=== PATIENT | male | born 1945 | race Caucasian/White ===

== ENCOUNTER 2019-02-06 20:33 | Inpatient (IN) | payer MEDICARE, OTHER ==
[~2019-02-06] VITALS: Ht 180.3 cm; Wt 102.4 kg
[2019-02-06 21:44] LABS: BASOPHILS % (AUTO) 0.2 % (0-1); EOSINOPHILS % (AUTO) 0 % (0-6); HEMATOCRIT 41.3 % (42.0-52.0); HEMOGLOBIN 13.6 g/dl (14.0-17.9); LYMPHOCYTES # (AUTO) 0.7 X10'3 (1.1-4.8); LYMPHOCYTES % (AUTO) 3.6 % (21-51); MEAN CORPUSCULAR HEMOGLOBIN 29.8 PG (27.0-31.0); MEAN CORPUSCULAR HGB CONC 32.9 g/dL (33.0-36.5); MEAN CORPUSCULAR VOLUME 90.8 FL (78-98); MEAN PLATELET VOLUME 8.9 FL (7.4-10.4); MONOCYTES # (AUTO) 1.2 X10'3 (0-0.9); NEUTROPHILS # (AUTO) 17.7 X10'3 (1.8-7.7); NEUTROPHILS % (AUTO) 90.2 % (42-75); PLATELET COUNT 312 X10'3 (140-440); RED BLOOD COUNT 4.55 X10'6 (4.70-6.10); RED CELL DISTRIBUTION WIDTH 14.6 % (11.5-14.5); WHITE BLOOD COUNT 19.6 X10'3 (4.5-11.0)
[2019-02-06 21:49] LABS: ALANINE AMINOTRANSFERASE 49 U/L (12-78); ALBUMIN 3.1 G/DL (3.4-5.0); ALBUMIN/GLOBULIN RATIO 0.6 (1.1-1.5); ALKALINE PHOSPHATASE 47 IU/L (46-116); ANION GAP 16 (8-16); ASPARTATE AMINO TRANSFERASE 58 U/L (10-37); BILIRUBIN,TOTAL 0.8 MG/DL (0.1-1.0); BLOOD UREA NITROGEN 64 MG/DL (7-18); BUN/CREATININE RATIO 15.6 (5.4-32.0); CALCIUM 8.1 MG/DL (8.5-10.1); CHLORIDE 94 MMOL/L (99-107); GLUCOSE 156 MG/DL (70-104); POTASSIUM 4.4 MMOL/L (3.5-5.1); SODIUM 131 MMOL/L (135-145); TOTAL CARBON DIOXIDE 21.2 MMOL/L (24-32); TOTAL PROTEIN 7.9 G/DL (6.4-8.2); eGFR 14 ML/MIN
[2019-02-06] MEDS ORDERED: ondansetron/PF 4mg/2ml inj IV ONE (21:50)
[2019-02-06] MEDS ORDERED: morphine 4 MG/ML inj SYRINge IV ONE (21:50)
[2019-02-06] MEDS ORDERED: normal saline 1000ML IV soln IVB ONE (21:50)
[2019-02-06] MEDS ORDERED: normal saline 1000ML IV soln IV ONE (23:35)
[2019-02-06] MEDS ORDERED: CefTRIAXone 2gm/D5W 50ml 50 ML IV ONE (23:40)
[2019-02-06] MEDS ORDERED: levoFLOXACIN-Levaquin 750MG/D5 150 ML IV ONE (23:40)
[2019-02-06 23:56] LABS: ABG BASE EXCESS -5.9 mmol/L (-2.0-3.0); ABG HCO3 18.3 mmol/L (22.0-26.0); ABG OXYGEN SATURATION 93.3 % (95-98); ABG PCO2 (T) 31.6 mmHg (35.0-45.0); ABG PH (T) 7.378 (7.350-7.450); ABG PO2 (T) 72.2 mmHg (83-108); ALLEN'S TEST Positive; FCOHb 1.1 % (0.5-1.5); FLOW 6 L/min; FMetHb 0.3 % (0.3-1.12); PATIENT TEMPERATURE 36.7; TOTAL HEMOGLOBIN 12.6 G/dl (14.0-17.9)
[2019-02-07] VITALS (21 sets, daily range): BP systolic 86–127; BP diastolic 46–82
[2019-02-07] MEDS ORDERED: ZOLP10TA PO (00:21)
[2019-02-07] MEDS ORDERED: LEVO75TA56 PO (00:21)
[2019-02-07] MEDS ORDERED: WARF3TAB PO (00:21)
[2019-02-07] MEDS ORDERED: BUDE10.22 INH (00:21)
[2019-02-07] MEDS ORDERED: FLEC100T2 PO (00:21)
[2019-02-07] MEDS ORDERED: ALBU90AE (00:21)
[2019-02-07] MEDS ORDERED: WARF6TAB PO (00:21)
[2019-02-07] MEDS ORDERED: HYDR-4353 PO (00:21)
[2019-02-07] MEDS ORDERED: [UNRECOGNIZED DRUG - CODE] PO (00:21)
[2019-02-07] MEDS ORDERED: GABA600T13 PO (00:21)
[2019-02-07 00:33] LABS: D-DIMER 1.15 MG/L FEU (0-0.50)
[2019-02-07] MEDS ORDERED: NORMAL SALINE IV ONE (01:15)
[2019-02-07] MEDS ORDERED: ondansetron/PF 4mg/2ml inj IV PRN (01:15)
[2019-02-07] MEDS ORDERED: PHYTONADIONE IV ONE (01:15)
[2019-02-07] MEDS ORDERED: acetaminophen 325mg tablet PO PRN ×2 (01:15)
[2019-02-07] MEDS ORDERED: sodium bicarbonate (8.4%) inj. 50 MEQ in sodium chloride 0.45% 1,000 ML IV SCH (01:35)
[2019-02-07 06:00] LABS: CLARITY,URINE CLOUDY (Clear); COLOR,URINE YELLOW (Yellow); GLUCOSE, URINE NEGATIVE (Neg); KETONES,URINE NEGATIVE (Neg); LEUKOCYTE ESTERASE ,URINE NEGATIVE (Neg); NITRITES, URINE NEGATIVE (Neg); OCCULT BLOOD,URINE SMALL (Neg); PH,URINE 5.5 (4.8-8.0); PROTEIN,URINE 100 mg/dl (Neg)
[2019-02-07 06:03] LABS: TOTAL PROTEIN,URINE RANDOM 189.8 MG/DL
--- NOTE | 2019-02-07 06:04 | NUR ---
RECEIVED PATIENT FROM ED NEAR 0230 AM. PATIENT ARRIVED ALERT AND ORIENTED WITHOUT COMPLAINTS OF RESPIRATORY DISTRESS OR C/O PAIN. PATIENT STATES THAT THE PAIN WHILE IN BED IS 0/10. HOWEVER WHEN HE IS WALKING - IT IS A 8/10 IN THE JOINT OF THE LEFT HIP. HE IS UNAWARE OF THE ETIOLOGY AND HAS NOT EXPERIENCE THIS PAIN BEFORE. B/L LUNGS ARE CLEAR BUT DIMINISHED B/L BASES. 6 L NC FOR SATS 96-97 %. RT JOCELYN IN AND SUGGEST NOT TURNING DOWN O2 DUE TO THE EARLIER ABG RESULTS % SAT COMPARED TO SAO2 SAT - THEY DID NOT CORRELATE. THE SAO2 % WAS READING HIGHER THAN WHAT THE ABG REVEALED. PATIENT IS NPO FOR THE VQ SCAN PROCEDURE IN THE AM. HOWEVER FOR PATIENT COMFORT I DID ALLOW PATIENT AN FEW ICE CHIPS BECAUSE HIS THROAT WAS TOO DRY. PATIENT DOES NOT FEEL THE NEED TO URINATE AT THIS TIME. PATIENT PER REPORT - RECEIVED 3.5 L NS IN ED. I MADE JUNE, PHARMACY INFORMATICS SPECIALIST AWARE AND WAS GIVEN AN ORDER TO STRAIGHT CATH IF THE BLADDER SCANNER SHOWED MORE THAN 400 CC URINE. bLADDER SCAN DONE NEAR 5 AM AND SHOWED 619 CC URINE. STRAIGHT CATH FOR 600 ML DARK SOY URINE. SAMPLE TO LAB FOR UA PER ORDER. PIV X2 # 20 LEFT AC & FA. PATIENT , CDI. VITAMIN MINI GIVEN IV PER ORDER. WENT HOME AFTER UNIT ORIENTATION AND CALL INFO EXCHANGE. TOOK ALL VALUABLES EXCEPT CELL PHONE AND GLASSES WHICH ARE AT BEDSIDE. SKIN INTACT. BG ON ARRIVAL TO UNIT WAS 105. ALL PROCEDURES EXPLAINED
[2019-02-07 06:08] LABS: UA COLLECTION TYPE STRAIGHT CATH
[2019-02-07 06:17] LABS: BASOPHILS % (AUTO) 0.2 % (0-1); EOSINOPHILS % (AUTO) 0 % (0-6); HEMATOCRIT 39.3 % (42.0-52.0); HEMOGLOBIN 12.9 g/dl (14.0-17.9); LYMPHOCYTES # (AUTO) 0.7 X10'3 (1.1-4.8); LYMPHOCYTES % (AUTO) 4.7 % (21-51); MEAN CORPUSCULAR HEMOGLOBIN 29.8 PG (27.0-31.0); MEAN CORPUSCULAR HGB CONC 32.7 g/dL (33.0-36.5); MEAN CORPUSCULAR VOLUME 91.1 FL (78-98); MEAN PLATELET VOLUME 8.8 FL (7.4-10.4); MONOCYTES % (AUTO) 6.5 % (2-12); NEUTROPHILS % (AUTO) 88.6 % (42-75); PLATELET COUNT 213 X10'3 (140-440); RED BLOOD COUNT 4.31 X10'6 (4.70-6.10); RED CELL DISTRIBUTION WIDTH 14.5 % (11.5-14.5); WHITE BLOOD COUNT 15.9 X10'3 (4.5-11.0)
[2019-02-07 06:27] LABS: BACTERIA,URINE FEW /HPF (Neg); WBC,URINE 0-4 /HPF (0-4)
[2019-02-07 06:28] LABS: HYALINE CASTS 0-3 /LPF (NEGATIVE); MUCUS STRANDS FEW /LPF (Neg); SQUAMOUS EPITHELIAL CELL,UR NONE SEEN /LPF (FEW)
[2019-02-07 06:30] LABS: RBC,URINE 0-2 /HPF (0-2)
[2019-02-07 06:31] LABS: AMORPHOUS URATES 3+
[2019-02-07 06:32] LABS: TRANSITIONAL EPI CELLS,URINE FEW /HPF
[2019-02-07 06:56] LABS: ALANINE AMINOTRANSFERASE 44 U/L (12-78); ALBUMIN 2.7 G/DL (3.4-5.0); ALBUMIN/GLOBULIN RATIO 0.6 (1.1-1.5); ALKALINE PHOSPHATASE 42 IU/L (46-116); ANION GAP 13 (8-16); ASPARTATE AMINO TRANSFERASE 54 U/L (10-37); BILIRUBIN,TOTAL 0.4 MG/DL (0.1-1.0); BLOOD UREA NITROGEN 63 MG/DL (7-18); BUN/CREATININE RATIO 16.8 (5.4-32.0); CALCIUM 7.4 MG/DL (8.5-10.1); CHLORIDE 100 MMOL/L (99-107); CHOLESTEROL 91 MG/DL (0-200); CREATININE 3.75 MG/DL (0.60-1.10); GLUCOSE 103 MG/DL (70-104); HDL CHOLESTEROL 13 MG/DL (35-60); LDL CHOLESTEROL 50 MG/DL (50-100); MAGNESIUM 2.2 MG/DL (1.5-2.4); PHOSPHORUS 4.6 MG/DL (2.3-4.5); POTASSIUM 4.6 MMOL/L (3.5-5.1); SODIUM 133 MMOL/L (135-145); TOTAL CARBON DIOXIDE 19.6 MMOL/L (24-32); TOTAL PROTEIN 7.2 G/DL (6.4-8.2); TRIGLYCERIDES 135 MG/DL (20-135); TROPONIN I 0.35 NG/ML (0.0-0.05); eGFR 16 ML/MIN
[2019-02-07] MEDS: ipratropium/albuterol 3ml nebule NEB PRN ×2 (08:15→20:13)
[2019-02-07] MEDS: budesonide 0.5mg/2ml UD nebule IH SCH ×2 (08:15→20:13)
[2019-02-07] MEDS: docusate sod 100mg capsule PO SCH ×2 (08:51→20:55)
[2019-02-07] MEDS: pantoprazole 40mg Tablet.DR PO SCH (08:51)
[2019-02-07] MEDS: gabapentin 300mg capsule PO SCH ×3 (08:51→20:56)
[2019-02-07] MEDS: flecainide 50mg tablet PO SCH ×2 (08:51→20:55)
[2019-02-07] MEDS: levoTHYROXINE 75mcg tablet PO SCH (08:52)
[2019-02-07] MEDS: sodium bicarbonate (8.4%) inj. 50 MEQ in sodium chloride 0.45% 1,000 ML IV SCH ×2 (10:55→20:55)
[2019-02-07] MEDS ORDERED: azithromycin 250mg tablet PO ONE (11:50)
[2019-02-07] MEDS: lactobacillus rhamnosus 10,000 MMU CELLS/CAPSULE PO SCH (20:55)
[2019-02-07] MEDS: tamsulosin 0.4mg capsule PO SCH (20:55)
[2019-02-07] MEDS ORDERED: gabapentin 300mg capsule PO SCH (21:00)
[2019-02-07] MEDS: CefTRIAXone 2gm/D5W 50ml 50 ML IV SCH (23:21)
[2019-02-08] VITALS (17 sets, daily range): BP systolic 85–111; BP diastolic 36–68
[2019-02-08] MEDS: HYDROcodone/acetaminophen 10/325mg tab PO PRN ×4 (03:13→23:14)
[2019-02-08] MEDS: sodium bicarbonate (8.4%) inj. 50 MEQ in sodium chloride 0.45% 1,000 ML IV SCH ×3 (03:47→18:09)
[2019-02-08 04:45] LABS: BASOPHILS % (AUTO) 0.2 % (0-1); EOSINOPHILS # (AUTO) 0.1 X10'3 (0-0.9); EOSINOPHILS % (AUTO) 0.6 % (0-6); HEMATOCRIT 38.5 % (42.0-52.0); HEMOGLOBIN 12.8 g/dl (14.0-17.9); LYMPHOCYTES # (AUTO) 0.7 X10'3 (1.1-4.8); LYMPHOCYTES % (AUTO) 6.4 % (21-51); MEAN CORPUSCULAR HGB CONC 33.2 g/dL (33.0-36.5); MEAN CORPUSCULAR VOLUME 90.3 FL (78-98); MEAN PLATELET VOLUME 8.9 FL (7.4-10.4); MONOCYTES # (AUTO) 0.7 X10'3 (0-0.9); MONOCYTES % (AUTO) 6.1 % (2-12); NEUTROPHILS # (AUTO) 9.2 X10'3 (1.8-7.7); NEUTROPHILS % (AUTO) 86.7 % (42-75); PLATELET COUNT 206 X10'3 (140-440); RED BLOOD COUNT 4.27 X10'6 (4.70-6.10); RED CELL DISTRIBUTION WIDTH 14.6 % (11.5-14.5); WHITE BLOOD COUNT 10.6 X10'3 (4.5-11.0)
[2019-02-08 04:59] LABS: ALANINE AMINOTRANSFERASE 43 U/L (12-78); ALBUMIN 2.2 G/DL (3.4-5.0); ALBUMIN/GLOBULIN RATIO 0.5 (1.1-1.5); ALKALINE PHOSPHATASE 48 IU/L (46-116); ANION GAP 11 (8-16); ASPARTATE AMINO TRANSFERASE 41 U/L (10-37); BILIRUBIN,TOTAL 0.5 MG/DL (0.1-1.0); BLOOD UREA NITROGEN 50 MG/DL (7-18); BUN/CREATININE RATIO 20.3 (5.4-32.0); CHLORIDE 102 MMOL/L (99-107); CREATININE 2.46 MG/DL (0.60-1.10); GLUCOSE 105 MG/DL (70-104); MAGNESIUM 2.1 MG/DL (1.5-2.4); PHOSPHORUS 3.5 MG/DL (2.3-4.5); POTASSIUM 4.3 MMOL/L (3.5-5.1); SODIUM 134 MMOL/L (135-145); TOTAL CARBON DIOXIDE 21.2 MMOL/L (24-32); TOTAL PROTEIN 6.4 G/DL (6.4-8.2); eGFR 26 ML/MIN
--- NOTE | 2019-02-08 05:12 | NUR ---
PATIENT DID FAIRLY WELL THIS SHIFT. NEUROLOGICALLY REMAINS INTACT. MARKED DECREASE IN O2 SATURATION WHEN O2 WAS PULLED AWAY FROM PATIENT NOSTRILS OR WHEN HE REMOVED IT TO WASH FACE - SATS DROP QUICKLY. NO C/O SOB AND RESPIRATORY DISTRESS. LUNGS ARE CLEAR AND DIMINISHED. NO COUGHING - UNABLE TO OBTAIN A SPUTUM SAMPLE. THE CONTAINER IS AT BEDSIDE AND PATIENT IS AWARE THAT WE NEED A SAMPLE SHOULD HE COUGH ANYTHING UP. PATIENT REVERTED TO AFIB STARTING NEAR MIDNIGHT. HE WAS IN AND OUT BUT REMAINED IN AFIB AFTER TO 2 AM. PER PATIENT - HE USUALLY CAN TELL WHEN HE GOES INTO A FIB BUT DID NOT AND STILL DOES NOT NOTICE ANYTHING DIFFERENT IN TERMS OF "FEELING IT". BP SINCE THEN OCCASIONALLY IS MARGINAL BUT PATIENT IS NOT DIZZY AND NO CP. NO NAUSEA THIS SHIFT. USES URINAL X1 FOR 650 ML SOY CLEAR URINE. BICARB INFUSES PER ORDER. SKIN IS INTACT. PATIENT WAS OOB X2, HAS A LARGE BM USING COMMODE WITH SMALL AMOUNT URINE WELL. WOKE UP LATER WITH FOOT PAIN - NOT UNUSUAL PER PATIENT. HE RECEIVED A NORCO WITH GOOD RESULTS. PATIENT BATHED HIMSELF/BR IN CHAIR NEAR 4 AM. NEW BED LINES Addendum: 02/08/19 at 0529 by Neville Tiwari RN PREVIOUS NOTE CLOSED UNEXPECTEDLY. NEW BED LINENS AND PATIENT WENT BACK TO BED AND SLEPT COMFORTABLY. ALL PROCEDURES EXPLAINED. AM LABS ARE PENDING AT THIS TIME. Addendum: 02/08/19 at 0534 by Neville Tiwari RN CLARIFICATION. 300 ML URINE WITH THE STOOL EPISODE AND PATIENT ALSO VOIDED A SEPARATE TIME IN URINAL WITH A DIFFERENT RN TO ADD TO Rapp IT Up. 1300 ML URINE THIS SHIFT
[2019-02-08 05:21] LABS: PARTIAL THROMBOPLASTIN TIME 62 SECONDS (22-32)
[2019-02-08] MEDS: naproxen sodium 220mg tablet PO SCH ×2 (07:39→20:00)
[2019-02-08] MEDS: lactobacillus rhamnosus 10,000 MMU CELLS/CAPSULE PO SCH ×2 (07:40→20:10)
[2019-02-08] MEDS: azithromycin 250mg tablet PO SCH (07:41)
[2019-02-08] MEDS: flecainide 50mg tablet PO SCH ×2 (07:41→20:11)
[2019-02-08] MEDS: pantoprazole 40mg Tablet.DR PO SCH (07:41)
[2019-02-08] MEDS: levoTHYROXINE 75mcg tablet PO SCH (07:41)
[2019-02-08] MEDS: tamsulosin 0.4mg capsule PO SCH ×2 (07:41→20:11)
[2019-02-08] MEDS: docusate sod 100mg capsule PO SCH ×2 (07:43→20:10)
[2019-02-08] MEDS: ipratropium/albuterol 3ml nebule NEB PRN (08:51)
[2019-02-08] MEDS: budesonide 0.5mg/2ml UD nebule IH SCH ×2 (08:51→20:24)
--- NOTE | 2019-02-08 09:17 | NUR ---
Pt. has orders to transfer to PCU with tele per Dr. Alvares. Pt. desats quickly if 02 is not on. Currently on 6L 02 via MT. Pt. to have nuc med bone scan today for c/o left hip pain on admission. Awaiting bed assignment on PCU. Charge nurse aware.
--- NOTE | 2019-02-08 12:21 | NUR ---
Pt. to go to bone scan in nuc. med at 1300 then to [facility] 3023A. Tele #[phone] obtained for pt. at bedside. RN attempted to call report but was told report would be taken after 1300 once pt. is in nuc. med.
--- NOTE | 2019-02-08 13:13 | NUR ---
Received report from ICU nurse Maria Victoria, RN Pt is at [facility] and will come to PCU when done
--- NOTE | 2019-02-08 13:16 | NUR ---
Report called to Otoniel GAN. Pt. in nuc med. Belonging brought to pt.'s new room on PCU. Antonia took pt's phone and security flex officer. Pt. wearing his glasses. Chart with pt. in Muc. Med. Pt. left to nec. med in stable condition with tele #[id number] on.
--- NOTE | 2019-02-08 13:46 | NUR ---
Pt arrived to 3
--- NOTE | 2019-02-08 13:48 | NUR ---
Pt arrived to room 3023a @ 1335 via wheelchair by [employer]. He is a&ox4, NAD
--- NOTE | 2019-02-08 16:51 | NUR ---
c/o pain in BLE chronic, ache. L hip pain has subsided Addendum: 02/08/19 at 1651 by Imelda Cottrell RN Amended: Links added.
--- NOTE | 2019-02-08 18:15 | NUR ---
Problems reprioritized. Patient report given, questions answered & plan of care reviewed with MALIK Flowers .
--- NOTE | 2019-02-08 18:52 | NUR ---
Patient in room PCU 3023. I have received report from Otoniel GAN and had the opportunity to ask questions and assume patient care.
[2019-02-08] MEDS: gabapentin 300mg capsule PO SCH (20:11)
[2019-02-08] MEDS: CefTRIAXone 2gm/D5W 50ml 50 ML IV SCH (23:14)
[2019-02-09] MEDS: zolpidem 5mg tablet PO PRN (01:08)
[2019-02-09] MEDS ORDERED: lactulose 20gm/30ml cup PO PRN (01:15)
[2019-02-09 02:00] VITALS: BP 102/62
[2019-02-09] MEDS: sodium bicarbonate (8.4%) inj. 50 MEQ in sodium chloride 0.45% 1,000 ML IV SCH (03:27)
[2019-02-09 05:22] LABS: BASOPHILS % (AUTO) 0.6 % (0-1); EOSINOPHILS # (AUTO) 0.3 X10'3 (0-0.9); EOSINOPHILS % (AUTO) 3.5 % (0-6); HEMATOCRIT 36.8 % (42.0-52.0); HEMOGLOBIN 12.4 g/dl (14.0-17.9); LYMPHOCYTES # (AUTO) 0.9 X10'3 (1.1-4.8); LYMPHOCYTES % (AUTO) 11.9 % (21-51); MEAN CORPUSCULAR HEMOGLOBIN 30.4 PG (27.0-31.0); MEAN CORPUSCULAR HGB CONC 33.7 g/dL (33.0-36.5); MEAN CORPUSCULAR VOLUME 90.2 FL (78-98); MEAN PLATELET VOLUME 9.1 FL (7.4-10.4); MONOCYTES # (AUTO) 0.5 X10'3 (0-0.9); MONOCYTES % (AUTO) 6.8 % (2-12); NEUTROPHILS # (AUTO) 5.8 X10'3 (1.8-7.7); NEUTROPHILS % (AUTO) 77.2 % (42-75); PLATELET COUNT 219 X10'3 (140-440); RED BLOOD COUNT 4.08 X10'6 (4.70-6.10); RED CELL DISTRIBUTION WIDTH 14.6 % (11.5-14.5); WHITE BLOOD COUNT 7.5 X10'3 (4.5-11.0)
[2019-02-09 05:31] LABS: PARTIAL THROMBOPLASTIN TIME 67 SECONDS (22-32)
[2019-02-09 05:39] LABS: ALANINE AMINOTRANSFERASE 46 U/L (12-78); ALBUMIN/GLOBULIN RATIO 0.5 (1.1-1.5); ALKALINE PHOSPHATASE 45 IU/L (46-116); ANION GAP 8 (8-16); ASPARTATE AMINO TRANSFERASE 47 U/L (10-37); BILIRUBIN,TOTAL 0.4 MG/DL (0.1-1.0); BLOOD UREA NITROGEN 50 MG/DL (7-18); BUN/CREATININE RATIO 23.6 (5.4-32.0); CALCIUM 7.1 MG/DL (8.5-10.1); CHLORIDE 102 MMOL/L (99-107); CREATININE 2.12 MG/DL (0.60-1.10); GLUCOSE 98 MG/DL (70-104); MAGNESIUM 2.3 MG/DL (1.5-2.4); PHOSPHORUS 3.3 MG/DL (2.3-4.5); POTASSIUM 3.7 MMOL/L (3.5-5.1); SODIUM 136 MMOL/L (135-145); TOTAL CARBON DIOXIDE 25.7 MMOL/L (24-32); TOTAL PROTEIN 5.8 G/DL (6.4-8.2); eGFR 31 ML/MIN
[2019-02-09 06:00] VITALS: BP 99/64
--- NOTE | 2019-02-09 06:05 | NUR ---
Patient in room PCU 3023. I have received report from MALIK Flowers and had the opportunity to ask questions and assume patient care.
--- NOTE | 2019-02-09 06:10 | NUR ---
Patient in room PCU 3023. I have received report from MALIK Holman and had the opportunity to ask questions and assume patient care.
--- NOTE | 2019-02-09 06:13 | NUR ---
Problems reprioritized. Patient report given, questions answered & plan of care reviewed with Angie GAN.
[2019-02-09] MEDS ORDERED: levoFLOXACIN-Levaquin 250mg/D5 50 ML IV SCH (08:00)
[2019-02-09] MEDS: naproxen sodium 220mg tablet PO SCH ×2 (08:00→20:00)
[2019-02-09] MEDS: pantoprazole 40mg Tablet.DR PO SCH (08:03)
[2019-02-09] MEDS: lactobacillus rhamnosus 10,000 MMU CELLS/CAPSULE PO SCH ×2 (08:03→20:11)
[2019-02-09] MEDS: azithromycin 250mg tablet PO SCH (08:04)
[2019-02-09] MEDS: flecainide 50mg tablet PO SCH ×2 (08:04→20:11)
[2019-02-09] MEDS: docusate sod 100mg capsule PO SCH ×2 (08:04→20:00)
[2019-02-09] MEDS: tamsulosin 0.4mg capsule PO SCH ×2 (08:04→20:11)
[2019-02-09] MEDS: levoTHYROXINE 75mcg tablet PO SCH (08:05)
[2019-02-09] MEDS: HYDROcodone/acetaminophen 10/325mg tab PO PRN ×2 (08:20→20:10)
[2019-02-09] MEDS: ipratropium/albuterol 3ml nebule NEB PRN ×2 (08:21→19:41)
[2019-02-09] MEDS: budesonide 0.5mg/2ml UD nebule IH SCH ×2 (08:21→19:41)
[2019-02-09 08:52] LABS: PSA, FREE 0.33 ng/mL
[2019-02-09 12:00] VITALS: BP 97/53
--- NOTE | 2019-02-09 12:38 | NUR ---
Problems re-prioritized. Ourcomes reviewed and updated.
[2019-02-09 15:00] VITALS: BP 110/69
--- NOTE | 2019-02-09 18:15 | NUR ---
Problems reprioritized. Patient report given, questions answered & plan of care reviewed with MALIK Dan.
[2019-02-09 19:00] VITALS: BP 117/82
[2019-02-09] MEDS ORDERED: GABA600T13 PO (20:01)
[2019-02-09] MEDS ORDERED: ALBU8.5H8 INH (20:04)
[2019-02-09] MEDS: gabapentin 300mg capsule PO SCH (20:11)
[2019-02-09] MEDS: CefTRIAXone 2gm/D5W 50ml 50 ML IV SCH (22:19)
[2019-02-09 23:00] VITALS: BP 123/76
[2019-02-10] MEDS: zolpidem 5mg tablet PO PRN ×2 (00:03→22:46)
[2019-02-10] MEDS: HYDROcodone/acetaminophen 10/325mg tab PO PRN ×4 (02:59→20:10)
[2019-02-10 03:00] VITALS: BP 121/76
[2019-02-10 05:43] LABS: BASOPHILS % (AUTO) 0.6 % (0-1); EOSINOPHILS # (AUTO) 0.2 X10'3 (0-0.9); EOSINOPHILS % (AUTO) 3.1 % (0-6); HEMATOCRIT 36.9 % (42.0-52.0); HEMOGLOBIN 12.3 g/dl (14.0-17.9); LYMPHOCYTES # (AUTO) 0.9 X10'3 (1.1-4.8); LYMPHOCYTES % (AUTO) 13.5 % (21-51); MEAN CORPUSCULAR HEMOGLOBIN 30.2 PG (27.0-31.0); MEAN CORPUSCULAR HGB CONC 33.3 g/dL (33.0-36.5); MEAN CORPUSCULAR VOLUME 90.8 FL (78-98); MEAN PLATELET VOLUME 8.9 FL (7.4-10.4); MONOCYTES # (AUTO) 0.4 X10'3 (0-0.9); NEUTROPHILS # (AUTO) 4.9 X10'3 (1.8-7.7); NEUTROPHILS % (AUTO) 75.8 % (42-75); PLATELET COUNT 256 X10'3 (140-440); RED BLOOD COUNT 4.07 X10'6 (4.70-6.10); RED CELL DISTRIBUTION WIDTH 14.6 % (11.5-14.5); WHITE BLOOD COUNT 6.4 X10'3 (4.5-11.0)
[2019-02-10 05:58] LABS: PARTIAL THROMBOPLASTIN TIME 65 SECONDS (22-32)
[2019-02-10 05:59] LABS: ALANINE AMINOTRANSFERASE 40 U/L (12-78); ALBUMIN 2.1 G/DL (3.4-5.0); ALBUMIN/GLOBULIN RATIO 0.6 (1.1-1.5); ALKALINE PHOSPHATASE 46 IU/L (46-116); ANION GAP 7 (8-16); ASPARTATE AMINO TRANSFERASE 34 U/L (10-37); BILIRUBIN,TOTAL 0.4 MG/DL (0.1-1.0); BLOOD UREA NITROGEN 40 MG/DL (7-18); BUN/CREATININE RATIO 21.2 (5.4-32.0); CALCIUM 7.6 MG/DL (8.5-10.1); CHLORIDE 106 MMOL/L (99-107); CREATININE 1.89 MG/DL (0.60-1.10); GLUCOSE 97 MG/DL (70-104); MAGNESIUM 2.3 MG/DL (1.5-2.4); POTASSIUM 4.1 MMOL/L (3.5-5.1); SODIUM 140 MMOL/L (135-145); TOTAL CARBON DIOXIDE 27.1 MMOL/L (24-32); TOTAL PROTEIN 5.8 G/DL (6.4-8.2); eGFR 35 ML/MIN
[2019-02-10 06:00] VITALS: BP 137/80
--- NOTE | 2019-02-10 06:14 | NUR ---
Patient in room PCU 3023. I have received report from Ni GAN and had the opportunity to ask questions and assume patient care. Pt is in bed resting, all needs met at this time, will continue to monitor.
[2019-02-10] MEDS: docusate sod 100mg capsule PO SCH ×2 (08:00→20:00)
[2019-02-10] MEDS: budesonide 0.5mg/2ml UD nebule IH SCH ×2 (08:09→20:28)
[2019-02-10] MEDS: ipratropium/albuterol 3ml nebule NEB PRN (08:09)
[2019-02-10] MEDS: flecainide 50mg tablet PO SCH ×2 (08:19→20:55)
[2019-02-10] MEDS: pantoprazole 40mg Tablet.DR PO SCH (08:19)
[2019-02-10] MEDS: tamsulosin 0.4mg capsule PO SCH ×2 (08:19→20:55)
[2019-02-10] MEDS: levoTHYROXINE 75mcg tablet PO SCH (08:19)
[2019-02-10] MEDS: lactobacillus rhamnosus 10,000 MMU CELLS/CAPSULE PO SCH ×2 (08:19→20:55)
[2019-02-10] MEDS: naproxen sodium 220mg tablet PO SCH ×2 (08:19→20:00)
[2019-02-10] MEDS: azithromycin 250mg tablet PO SCH (08:19)
--- NOTE | 2019-02-10 09:14 | NUR ---
Called Dr. Fitzgerald in regards to pt elevated HR, advised to encourage PO Fluids
[2019-02-10 11:00] VITALS: BP 149/93
[2019-02-10 15:00] VITALS: BP 140/77
--- NOTE | 2019-02-10 17:49 | NUR ---
[place] documentation: I have reviewed and agree with all interventions, assessments performed and documented by MALIK Ortiz.
--- NOTE | 2019-02-10 17:51 | NUR ---
[place] Medication Administration: For this medication-pass time frame, all medication were reviewed, dispensed, administered and documented per hospital policy by MALIK Ortiz.
--- NOTE | 2019-02-10 18:19 | NUR ---
Problems reprioritized. Patient report given, questions answered & plan of care reviewed with Ni GAN.
[2019-02-10 19:00] VITALS: BP 144/89
[2019-02-10] MEDS: gabapentin 300mg capsule PO SCH (20:56)
[2019-02-10] MEDS: CefTRIAXone 2gm/D5W 50ml 50 ML IV SCH (22:46)
[2019-02-10 23:00] VITALS: BP 162/107
[2019-02-11 03:00] VITALS: BP 155/92
[2019-02-11] MEDS: HYDROcodone/acetaminophen 10/325mg tab PO PRN ×4 (03:20→20:55)
[2019-02-11 05:39] LABS: BASOPHILS % (AUTO) 0.6 % (0-1); EOSINOPHILS # (AUTO) 0.3 X10'3 (0-0.9); EOSINOPHILS % (AUTO) 3.9 % (0-6); HEMATOCRIT 36.4 % (42.0-52.0); HEMOGLOBIN 12.3 g/dl (14.0-17.9); LYMPHOCYTES % (AUTO) 15.1 % (21-51); MEAN CORPUSCULAR HEMOGLOBIN 30.4 PG (27.0-31.0); MEAN CORPUSCULAR HGB CONC 33.8 g/dL (33.0-36.5); MEAN PLATELET VOLUME 8.4 FL (7.4-10.4); MONOCYTES # (AUTO) 0.5 X10'3 (0-0.9); MONOCYTES % (AUTO) 7.3 % (2-12); NEUTROPHILS # (AUTO) 4.8 X10'3 (1.8-7.7); NEUTROPHILS % (AUTO) 73.1 % (42-75); PARTIAL THROMBOPLASTIN TIME 62 SECONDS (22-32); PLATELET COUNT 316 X10'3 (140-440); RED BLOOD COUNT 4.04 X10'6 (4.70-6.10); RED CELL DISTRIBUTION WIDTH 14.5 % (11.5-14.5); WHITE BLOOD COUNT 6.6 X10'3 (4.5-11.0)
[2019-02-11 05:45] LABS: ALANINE AMINOTRANSFERASE 42 U/L (12-78); ALBUMIN 2.2 G/DL (3.4-5.0); ALBUMIN/GLOBULIN RATIO 0.6 (1.1-1.5); ALKALINE PHOSPHATASE 42 IU/L (46-116); ANION GAP 9 (8-16); ASPARTATE AMINO TRANSFERASE 32 U/L (10-37); BILIRUBIN,TOTAL 0.4 MG/DL (0.1-1.0); BLOOD UREA NITROGEN 30 MG/DL (7-18); BUN/CREATININE RATIO 18.3 (5.4-32.0); CALCIUM 7.8 MG/DL (8.5-10.1); CHLORIDE 108 MMOL/L (99-107); CREATININE 1.64 MG/DL (0.60-1.10); GLUCOSE 101 MG/DL (70-104); MAGNESIUM 2.3 MG/DL (1.5-2.4); PHOSPHORUS 2.8 MG/DL (2.3-4.5); POTASSIUM 3.9 MMOL/L (3.5-5.1); SODIUM 142 MMOL/L (135-145); TOTAL CARBON DIOXIDE 25.3 MMOL/L (24-32); TOTAL PROTEIN 5.7 G/DL (6.4-8.2); eGFR 41 ML/MIN
[2019-02-11 06:00] VITALS: BP 166/94
--- NOTE | 2019-02-11 06:05 | NUR ---
Patient in room PCU 3023. I have received report from MALIK Dan and had the opportunity to ask questions and assume patient care.
[2019-02-11] MEDS: naproxen sodium 220mg tablet PO SCH ×2 (07:01→20:00)
[2019-02-11] MEDS: docusate sod 100mg capsule PO SCH ×2 (07:01→20:53)
[2019-02-11] MEDS: levoTHYROXINE 75mcg tablet PO SCH (07:09)
[2019-02-11] MEDS: azithromycin 250mg tablet PO SCH (07:09)
[2019-02-11] MEDS: flecainide 50mg tablet PO SCH ×2 (07:09→20:53)
[2019-02-11] MEDS: pantoprazole 40mg Tablet.DR PO SCH (07:09)
[2019-02-11] MEDS: lactobacillus rhamnosus 10,000 MMU CELLS/CAPSULE PO SCH ×2 (07:09→20:53)
[2019-02-11] MEDS: tamsulosin 0.4mg capsule PO SCH ×2 (07:09→20:53)
--- NOTE | 2019-02-11 07:26 | NUR ---
PAGER ID: [phone] MESSAGE: [id number] Raman Burgos: HR 140's and BP 166/64 MALIK Green Ext [phone]
--- NOTE | 2019-02-11 07:56 | NUR ---
Called Dr Yoder about pulse in the 120's and BP in the 160's. Said he wasn't concerned about the pulse because it was due to deconditioning and to restart his LISSETH.
[2019-02-11] MEDS: lisinopril 20mg tablet PO SCH (08:30)
[2019-02-11] MEDS: budesonide 0.5mg/2ml UD nebule IH SCH ×2 (09:00→20:39)
[2019-02-11 11:00] VITALS: BP 136/89
[2019-02-11] MEDS ORDERED: levoFLOXACIN 250mg tablet PO SCH (11:00)
--- NOTE | 2019-02-11 12:54 | NUR ---
O2 Sat at rest on room air:_83__% If below 89%: Recovery O2 Sat at rest on ___LPM:__1.5_%:__92_% via____NC (mask/nasal cannula, etc..) No further documentation is necessary. If O2 Sat did not drop below 89% on room air,ambulate patient on room air. O2 Sat while ambulating on room air:___% Recovery O2 Sat while ambulating on ___LPM:___% No further documentation is necessary. If patient does not drop below 89% while ambulating, he/she does not qualify for home O2.
[2019-02-11 15:00] VITALS: BP 157/87
[2019-02-11 18:00] VITALS: BP 151/70
--- NOTE | 2019-02-11 18:06 | NUR ---
Problems reprioritized. Patient report given, questions answered & plan of care reviewed with Randi. GAN.
--- NOTE | 2019-02-11 18:30 | NUR ---
Patient in room PCU 3023. I have received report from MALIK Green and had the opportunity to ask questions and assume patient care.
[2019-02-11] MEDS: gabapentin 300mg capsule PO SCH (20:53)
[2019-02-11 22:00] VITALS: BP 156/74
[2019-02-11] MEDS: zolpidem 5mg tablet PO PRN (22:54)
[2019-02-11] MEDS: CefTRIAXone 2gm/D5W 50ml 50 ML IV SCH (22:54)
[2019-02-12 02:00] VITALS: BP 148/64
[2019-02-12] MEDS: HYDROcodone/acetaminophen 10/325mg tab PO PRN ×4 (04:03→21:42)
[2019-02-12 05:28] LABS: BASOPHILS % (AUTO) 0.6 % (0-1); EOSINOPHILS # (AUTO) 0.3 X10'3 (0-0.9); EOSINOPHILS % (AUTO) 4.1 % (0-6); HEMOGLOBIN 11.6 g/dl (14.0-17.9); LYMPHOCYTES # (AUTO) 1.1 X10'3 (1.1-4.8); LYMPHOCYTES % (AUTO) 15.9 % (21-51); MEAN CORPUSCULAR HEMOGLOBIN 29.9 PG (27.0-31.0); MEAN CORPUSCULAR VOLUME 90.5 FL (78-98); MONOCYTES # (AUTO) 0.5 X10'3 (0-0.9); MONOCYTES % (AUTO) 6.9 % (2-12); NEUTROPHILS % (AUTO) 72.5 % (42-75); PLATELET COUNT 332 X10'3 (140-440); RED BLOOD COUNT 3.87 X10'6 (4.70-6.10); RED CELL DISTRIBUTION WIDTH 14.5 % (11.5-14.5); WHITE BLOOD COUNT 6.9 X10'3 (4.5-11.0)
[2019-02-12 05:29] LABS: PARTIAL THROMBOPLASTIN TIME 57 SECONDS (22-32)
[2019-02-12 05:48] LABS: ALANINE AMINOTRANSFERASE 43 U/L (12-78); ALBUMIN 2.4 G/DL (3.4-5.0); ALBUMIN/GLOBULIN RATIO 0.7 (1.1-1.5); ALKALINE PHOSPHATASE 44 IU/L (46-116); ANION GAP 8 (8-16); ASPARTATE AMINO TRANSFERASE 34 U/L (10-37); BILIRUBIN,TOTAL 0.4 MG/DL (0.1-1.0); BLOOD UREA NITROGEN 29 MG/DL (7-18); BUN/CREATININE RATIO 17.9 (5.4-32.0); CALCIUM 8.2 MG/DL (8.5-10.1); CHLORIDE 109 MMOL/L (99-107); CREATININE 1.62 MG/DL (0.60-1.10); GLUCOSE 100 MG/DL (70-104); MAGNESIUM 2.2 MG/DL (1.5-2.4); PHOSPHORUS 3.3 MG/DL (2.3-4.5); POTASSIUM 3.9 MMOL/L (3.5-5.1); SODIUM 143 MMOL/L (135-145); TOTAL CARBON DIOXIDE 26.1 MMOL/L (24-32); TOTAL PROTEIN 5.8 G/DL (6.4-8.2); eGFR 42 ML/MIN
[2019-02-12 06:00] VITALS: BP 173/79
--- NOTE | 2019-02-12 06:04 | NUR ---
Problems reprioritized. Patient report given, questions answered & plan of care reviewed with MALIK Green.
--- NOTE | 2019-02-12 06:16 | NUR ---
Patient in room PCU 3023. I have received report from MALIK Clark and had the opportunity to ask questions and assume patient care.
[2019-02-12] MEDS: naproxen sodium 220mg tablet PO SCH (07:04)
[2019-02-12] MEDS: docusate sod 100mg capsule PO SCH (07:04)
[2019-02-12] MEDS: lactobacillus rhamnosus 10,000 MMU CELLS/CAPSULE PO SCH (07:16)
[2019-02-12] MEDS: tamsulosin 0.4mg capsule PO SCH (07:17)
[2019-02-12] MEDS: levoTHYROXINE 75mcg tablet PO SCH (07:17)
[2019-02-12] MEDS: flecainide 50mg tablet PO SCH (07:17)
[2019-02-12] MEDS: pantoprazole 40mg Tablet.DR PO SCH (07:17)
[2019-02-12] MEDS: lisinopril 20mg tablet PO SCH (07:17)
[2019-02-12] MEDS: budesonide 0.5mg/2ml UD nebule IH SCH ×2 (08:09→20:19)
[2019-02-12 11:00] VITALS: BP_SYST 109; BP_SYST 177; BP_DIAS 84; BP_DIAS 89
--- NOTE | 2019-02-12 13:13 | NUR ---
Notified Dr Crews of BP 177/86. No new orders given.
[2019-02-12] MEDS ORDERED: LEVO500T2 PO (13:14)
[2019-02-12 15:00] VITALS: BP 167/83
[2019-02-12] MEDS ORDERED: ASPI81TA52 PO (15:17)
[2019-02-12] MEDS ORDERED: CARV-49 PO (15:17)
[2019-02-12 18:00] VITALS: BP 162/85
--- NOTE | 2019-02-12 18:05 | NUR ---
Per patient will be here to pick him up around 2100
--- NOTE | 2019-02-12 18:30 | NUR ---
Patient in room PCU 3023. I have received report from MALIK Hooper and had the opportunity to ask questions and assume patient care.
--- NOTE | 2019-02-12 18:31 | NUR ---
Patient in room PCU 3023. I have received report from Peter GAN and had the opportunity to ask questions and assume patient care.
--- NOTE | 2019-02-12 18:31 | NUR ---
Problems reprioritized. Patient report given, questions answered & plan of care reviewed with MALIK Hooper.
--- NOTE | 2019-02-12 21:00 | NUR ---
Discharge packet reviewed w/pt. Meds discussed and highlighted. INR also reviewed and Coumadin discussed as dose varies depending on day of week. Pt. understands this variation and most recent INR level discussed.
--- NOTE | 2019-02-12 22:00 | NUR ---
Spouse at bedside assisting w/readying pt. f/discharge. Tele monitor removed and SL pulled f/DC. Pt. placed on home O2 condenser f/transfer home. Operation of this O2 source reviewed w/pt. and pt's spouse. Pt. refused HS medications tonight, stating he will take all meds at home as he has been taking them there fr/before admission. They are familiar to him.
--- NOTE | 2019-02-12 22:20 | NUR ---
Pt packed up and ready f/DC to spouse. Transferred out fr/hospital via WC into spouse's car W/O incident.
== END 2019-02-12 22:20 | disposition home health service (06) | DRG 871 ==
LOC: ER 20:34 → ICU 2S 02-07 01:50 → CMPBEDREQ 02-07 19:45 → PCU 3S 02-08 15:03
PROVIDERS: ADMIT Internal Medicine Critical Care Medicine; ATTEND Internal Medicine
PROC: CB121ZZ Planar Nuclear Medicine Imaging of Lungs and Bronchi using Technetium 99m (Tc-99m) (ICD-10-PCS; principal; 2019-02-07)
PROC: CW1 Nuclear Medicine, Anatomical Regions, Planar Nuclear Medicine Imaging (ICD-10-PCS; 2019-02-08)
DX: A41.9 Sepsis, unspecified organism (principal); R65.21 Severe sepsis with septic shock; D65 Disseminated intravascular coagulation [defibrination syndrome]; J18.9 Pneumonia, unspecified organism; I21.A1 Myocardial infarction type 2; E87.1 Hypo-osmolality and hyponatremia; N17.9 Acute kidney failure, unspecified; D68.9 Coagulation defect, unspecified; J44.0 Chronic obstructive pulmonary disease with (acute) lower respiratory infection; E87.2 Acidosis; E87.3 Alkalosis; D64.9 Anemia, unspecified; E86.0 Dehydration; R09.02 Hypoxemia; M19.90 Unspecified osteoarthritis, unspecified site; M25.552 Pain in left hip; R06.03 Acute respiratory distress; E03.9 Hypothyroidism, unspecified; I12.9 Hypertensive chronic kidney disease with stage 1 through stage 4 chronic kidney disease, or unspecified chronic kidney disease; N18.3 Chronic kidney disease, stage 3 (moderate); I48.91 Unspecified atrial fibrillation; Z79.01 Long term (current) use of anticoagulants; Z79.899 Other long term (current) drug therapy; Z86.718 Personal history of other venous thrombosis and embolism; Z87.891 Personal history of nicotine dependence
CPT/HCPCS: 36415; 36600; 71045; 72192; 78300; 78582; 80053; 80061; 81001; 82570; 82803; 82948; 83605; 83735; 83880; 84100; 84145; 84153; 84154; 84156; 84300; 84443; 84484; 85018; 85025; 85379; 85384; 85610; 85730; 86885; 86900; 86901; 87040; 87081; 93005; 93306; 94640; 94760; 96365; 96368; 96375; 97110; 97116; 97161; 97530; 99291; A9503; A9539; A9540; G0378; J0696; J1956; J2270; J2405; J3430; J7626

== ENCOUNTER 2019-12-28 09:34 | Outpatient (CLI) | payer MEDICARE, OTHER ==
[~2019-12-28 09:34] MED LIST: ALBU8.5H8 INH; BUDE10.22 INH; CARV-49 PO; FLEC100T2 PO; GABA600T13 PO; HYDR-4353 PO; LEVO75TA56 PO; WARF3TAB PO; WARF6TAB PO; ZOLP10TA PO; [UNRECOGNIZED DRUG - CODE] PO
== END 2019-12-28 10:42 | disposition home or self-care (01) ==
LOC: WOUND CARE 09:34 → EDSTATUS 09:40 → WOUND CARE 10:42
PROVIDERS: ATTEND Nurse Practitioner
DX: L97.822 Non-pressure chronic ulcer of other part of left lower leg with fat layer exposed (principal); L97.322 Non-pressure chronic ulcer of left ankle with fat layer exposed; I87.2 Venous insufficiency (chronic) (peripheral); I12.9 Hypertensive chronic kidney disease with stage 1 through stage 4 chronic kidney disease, or unspecified chronic kidney disease; N18.3 Chronic kidney disease, stage 3 (moderate); I48.20 Chronic atrial fibrillation, unspecified; J44.9 Chronic obstructive pulmonary disease, unspecified; K21.9 Gastro-esophageal reflux disease without esophagitis; E03.9 Hypothyroidism, unspecified; I48.91 Unspecified atrial fibrillation; D68.9 Coagulation defect, unspecified; I25.2 Old myocardial infarction; Z86.711 Personal history of pulmonary embolism; M19.90 Unspecified osteoarthritis, unspecified site; Z79.899 Other long term (current) drug therapy; Z86.718 Personal history of other venous thrombosis and embolism; Z79.01 Long term (current) use of anticoagulants; Z87.891 Personal history of nicotine dependence
CPT/HCPCS: G0463

== ENCOUNTER 2021-12-31 12:44 | Day surgery (SDC) | payer MEDICARE, OTHER ==
[2021-12-26 11:43] LABS: BASOPHILS # (AUTO) 0.1 X10'3 (0-0.2); BASOPHILS % (AUTO) 0.9 % (0-1); EOSINOPHILS # (AUTO) 0.2 X10'3 (0-0.9); HEMATOCRIT 42.7 % (42.0-52.0); LYMPHOCYTES % (AUTO) 11.4 % (21-51); MEAN CORPUSCULAR HEMOGLOBIN 29.3 PG (27.0-31.0); MEAN CORPUSCULAR HGB CONC 32.9 g/dL (33.0-36.5); MEAN PLATELET VOLUME 7.7 FL (7.4-10.4); MONOCYTES # (AUTO) 0.5 X10'3 (0-0.9); MONOCYTES % (AUTO) 5.9 % (2-12); NEUTROPHILS # (AUTO) 7.3 X10'3 (1.8-7.7); NEUTROPHILS % (AUTO) 79.8 % (42-75); PLATELET COUNT 324 X10'3 (140-440); RED CELL DISTRIBUTION WIDTH 15.7 % (11.5-14.5); WHITE BLOOD COUNT 9.1 X10'3 (4.5-11.0)
[2021-12-26 12:03] LABS: ALBUMIN 3.6 G/DL (3.4-5.0); ANION GAP 9 (8-16); BLOOD UREA NITROGEN 28 MG/DL (7-18); BUN/CREATININE RATIO 15.2 (5.4-32.0); CALCIUM 8.4 MG/DL (8.5-10.1); CHLORIDE 104 MMOL/L (99-107); CHOL/HDL RATIO 3.2 (0.00-4.99); CHOLESTEROL 116 MG/DL (0-200); CREATININE 1.84 MG/DL (0.60-1.10); GLUCOSE 78 MG/DL (70-104); HDL CHOLESTEROL 36 MG/DL (35-60); LDL CHOLESTEROL 63 MG/DL (50-100); POTASSIUM 4.7 MMOL/L (3.5-5.1); SODIUM 138 MMOL/L (135-145); TOTAL CARBON DIOXIDE 24.9 MMOL/L (24-32); TRIGLYCERIDES 115 MG/DL (20-135); eGFR 36 ML/MIN
[2021-12-26 12:20] LABS: APTT 41 SECONDS (22-32)
[2021-12-31] VITALS (7 sets, daily range): BP systolic 149–187; BP diastolic 68–89
[~2021-12-31] VITALS: Ht 177.8 cm; Wt 45.4 kg
[~2021-12-31 12:44] MED LIST changes: +ALBU8.5H17 INH; -ALBU8.5H8 INH; +[UNRECOGNIZED DRUG - CODE] PO; -[UNRECOGNIZED DRUG - CODE] PO
[2021-12-31] MEDS ORDERED: diphenhydrAMINE 25mg capsule PO PRN (13:00)
[2021-12-31] MEDS ORDERED: LORazepam 0.5 MG tablet PO PRN (13:00)
[2021-12-31] MEDS ORDERED: normal saline 1,000 ML IV SCH (13:00)
[2021-12-31] MEDS ORDERED: ENOX100D5 SQ (13:19)
[2021-12-31] MEDS ORDERED: LOSA100T57 PO (13:19)
[2021-12-31] MEDS ORDERED: AMLO10TA13 PO (13:23)
[2021-12-31] MEDS ORDERED: GABA600T13 PO (13:23)
[2021-12-31] MEDS ORDERED: PANT40TA54 PO (13:23)
[2021-12-31] MEDS ORDERED: ALBU8HFA PO (13:23)
[2021-12-31] MEDS ORDERED: FLEC100T35 PO (13:23)
[2021-12-31] MEDS ORDERED: midazolam 1 mg/ML 2ml injection ONE (13:51)
[2021-12-31] MEDS ORDERED: fentaNYL/PF 50MCG/1 ML 2ML syringe ONE (13:51)
[2021-12-31] MEDS ORDERED: LIDOcaine 1% 30ml preserv. free vial ONE (13:51)
[2021-12-31] MEDS ORDERED: heparin 1,000unit/ml 10ml vial 0 ML ONE (13:51)
[2021-12-31] MEDS ORDERED: iohexol 350MG/ML 100ml bottle IV ONE (13:51)
[2021-12-31] MEDS ORDERED: nitroGLYCERIN-Tridil 50MG/D5W 0 ML IV ONE (13:51)
[2021-12-31] MEDS ORDERED: verapamil 2.5 mg/ml inj IV ONE (13:51)
[2021-12-31] MEDS ORDERED: HYDROcodone/acetaminophen 10/325mg tab PO PRN (15:30)
[2021-12-31] MEDS ORDERED: HYDROcodone/acetaminophen 5mg/325mg tablet PO PRN (15:30)
[2021-12-31 15:51] LABS: ISTAT Hct MIX 40 %PCV (42-52); ISTAT O2 SATURATION MIX VENOUS 46 % (60-80); ISTAT SOURCE BLNK
[2021-12-31 15:52] LABS: ISTAT Hct MIX 41 %PCV (42-52); ISTAT O2 SATURATION MIX VENOUS 46 % (60-80); ISTAT SOURCE BLNK
== END 2021-12-31 17:05 | disposition home or self-care (01) ==
LOC: SSTAY O 12:44
PROVIDERS: ATTEND Internal Medicine Interventional Cardiology
DX: R06.02 Shortness of breath (principal); I27.20 Pulmonary hypertension, unspecified; I48.0 Paroxysmal atrial fibrillation; M19.90 Unspecified osteoarthritis, unspecified site; E03.9 Hypothyroidism, unspecified; N18.9 Chronic kidney disease, unspecified; E78.5 Hyperlipidemia, unspecified; I12.9 Hypertensive chronic kidney disease with stage 1 through stage 4 chronic kidney disease, or unspecified chronic kidney disease; I08.1 Rheumatic disorders of both mitral and tricuspid valves; Z87.891 Personal history of nicotine dependence; Z79.899 Other long term (current) drug therapy; Z98.890 Other specified postprocedural states
CPT/HCPCS: 36415; 80048; 80061; 82803; 85014; 85025; 85610; 85730; 93005; 93451; A6258; C1769; J1644; J2250; J3010; J7030; Q0163; Q9967; 99152; A4615; A4620; J3490

== ENCOUNTER 2022-10-21 10:39 | Outpatient (CLI) | payer MEDICARE, OTHER ==
[~2022-10-21 10:39] MED LIST changes: -ALBU8.5H17 INH; +ALBU8HFA PO; +AMLO10TA13 PO; -CARV-49 PO; +ENOX100D5 SQ; -FLEC100T2 PO; +FLEC100T35 PO; +LOSA100T57 PO; +PANT40TA54 PO; -[UNRECOGNIZED DRUG - CODE] PO
== END 2022-10-21 23:59 | disposition home or self-care (01) ==
LOC: CARD DIAG 10:39
PROVIDERS: ATTEND Internal Medicine
DX: I08.3 Combined rheumatic disorders of mitral, aortic and tricuspid valves (principal); I48.19 Other persistent atrial fibrillation; J43.9 Emphysema, unspecified; I13.0 Hypertensive heart and chronic kidney disease with heart failure and stage 1 through stage 4 chronic kidney disease, or unspecified chronic kidney disease; N18.2 Chronic kidney disease, stage 2 (mild); I50.42 Chronic combined systolic (congestive) and diastolic (congestive) heart failure
CPT/HCPCS: 93306

== ENCOUNTER 2022-12-01 14:10 | Outpatient (CLI) | payer MEDICARE, OTHER ==
[~2022-12-01 14:10] MED LIST changes: -LOSA100T57 PO; +LOSA100T58 PO
== END 2022-12-01 23:59 | disposition home or self-care (01) ==
LOC: RT 14:10
PROVIDERS: ATTEND Internal Medicine
DX: I13.0 Hypertensive heart and chronic kidney disease with heart failure and stage 1 through stage 4 chronic kidney disease, or unspecified chronic kidney disease (principal); N18.2 Chronic kidney disease, stage 2 (mild); I50.42 Chronic combined systolic (congestive) and diastolic (congestive) heart failure; I27.20 Pulmonary hypertension, unspecified; I48.19 Other persistent atrial fibrillation; J43.9 Emphysema, unspecified
CPT/HCPCS: 94618

== ENCOUNTER 2023-01-21 08:42 | Outpatient (CLI) | payer MEDICARE, OTHER ==
[~2023-01-21] VITALS: Ht 177.8 cm; Wt 92.5 kg
[2023-01-21] MEDS ORDERED: albuterol 2.5 MG/3 ML nebule NEB ONE (09:40)
[2023-01-21 09:49] VITALS: PULSE 60; RESP 18; O2SAT 82
== END 2023-01-21 23:59 | disposition home or self-care (01) ==
LOC: RT 08:42
PROVIDERS: ATTEND Internal Medicine
DX: I13.0 Hypertensive heart and chronic kidney disease with heart failure and stage 1 through stage 4 chronic kidney disease, or unspecified chronic kidney disease (principal); N18.2 Chronic kidney disease, stage 2 (mild); I50.42 Chronic combined systolic (congestive) and diastolic (congestive) heart failure; I50.84 End stage heart failure; R94.2 Abnormal results of pulmonary function studies; I27.20 Pulmonary hypertension, unspecified; I48.19 Other persistent atrial fibrillation; J43.9 Emphysema, unspecified
CPT/HCPCS: 94060; 94727; 94729; 94760

== ENCOUNTER 2023-01-26 08:19 | Outpatient (CLI) | payer MEDICARE, OTHER | END 2023-01-26 23:59 | disposition home or self-care (01) | LOC: RT 08:19 | PROVIDERS: ATTEND Internal Medicine | DX: I11.0 Hypertensive heart disease with heart failure (principal); I50.9 Heart failure, unspecified; J44.9 Chronic obstructive pulmonary disease, unspecified; I27.20 Pulmonary hypertension, unspecified; K21.9 Gastro-esophageal reflux disease without esophagitis; E03.9 Hypothyroidism, unspecified | CPT/HCPCS: 94618; 94625; G0237 ==

== ENCOUNTER 2023-02-17 11:17 | Day surgery (SDC) | payer MEDICARE, OTHER ==
[2023-02-13 12:08] LABS: BASOPHILS % (AUTO) 0.4 % (0-1); EOSINOPHILS # (AUTO) 0.1 X10'3 (0-0.9); EOSINOPHILS % (AUTO) 1.3 % (0-6); HEMATOCRIT 42.2 % (42.0-52.0); HEMOGLOBIN 14.1 g/dl (14.0-17.9); LYMPHOCYTES # (AUTO) 0.7 X10'3 (1.1-4.8); LYMPHOCYTES % (AUTO) 6.1 % (21-51); MEAN CORPUSCULAR HEMOGLOBIN 30.2 PG (27.0-31.0); MEAN CORPUSCULAR HGB CONC 33.5 g/dL (33.0-36.5); MEAN CORPUSCULAR VOLUME 90.3 FL (78-98); MEAN PLATELET VOLUME 7.3 FL (7.4-10.4); MONOCYTES # (AUTO) 0.6 X10'3 (0-0.9); MONOCYTES % (AUTO) 6.1 % (2-12); NEUTROPHILS # (AUTO) 9.2 X10'3 (1.8-7.7); NEUTROPHILS % (AUTO) 86.1 % (42-75); PLATELET COUNT 246 X10'3 (140-440); RED BLOOD COUNT 4.68 X10'6 (4.70-6.10); RED CELL DISTRIBUTION WIDTH 16.3 % (11.5-14.5); WHITE BLOOD COUNT 10.6 X10'3 (4.5-11.0)
[2023-02-13 12:20] LABS: APTT 48 SECONDS (22-32); INR 2.7 INR; PROTHROMBIN TIME 27.7 SECONDS (9.0-12.0)
[2023-02-13 12:24] LABS: ALBUMIN 3.7 G/DL (3.4-5.0); ANION GAP 9 (8-16); BLOOD UREA NITROGEN 63 MG/DL (7-18); BUN/CREATININE RATIO 22.3 (10.0-20.0); CALCIUM 8.8 MG/DL (8.5-10.1); CHLORIDE 99 MMOL/L (99-107); CHOL/HDL RATIO 3.7 (0.00-4.99); CHOLESTEROL 123 MG/DL (0-200); CREATININE 2.82 MG/DL (0.60-1.10); GLUCOSE 103 MG/DL (70-104); HDL CHOLESTEROL 33 MG/DL (35-60); LDL CHOLESTEROL 64 MG/DL (50-100); POTASSIUM 4.4 MMOL/L (3.5-5.1); SODIUM 136 MMOL/L (135-145); TOTAL CARBON DIOXIDE 28.3 MMOL/L (24-32); TRIGLYCERIDES 132 MG/DL (20-135); eGFR 22 ML/MIN
[2023-02-17] VITALS (8 sets, daily range): BP systolic 122–143; BP diastolic 56–71; PULSE 62–71; RESP 16; TEMP 97.7; O2SAT 91–94
[~2023-02-17] VITALS: Ht 177.8 cm; Wt 95.6 kg
[2023-02-17] MEDS ORDERED: diphenhydrAMINE 25mg capsule PO PRN (11:35)
[2023-02-17] MEDS ORDERED: LORazepam 0.5 MG tablet PO PRN (11:35)
[2023-02-17] MEDS ORDERED: normal saline 1,000 ML IV SCH (11:35)
[2023-02-17] MEDS ORDERED: EMPA10TA PO (12:06)
[2023-02-17] MEDS ORDERED: NIFE90TA70 PO (12:06)
[2023-02-17] MEDS ORDERED: FURO40TA4 PO (12:06)
[2023-02-17 12:12] LABS: INR 1.1 INR
[2023-02-17] MEDS ORDERED: SILD25TA PO (12:16)
[2023-02-17] MEDS ORDERED: midazolam 1 mg/ML 2ml injection ONE (14:41)
[2023-02-17] MEDS ORDERED: LIDOcaine 1% (10mg/ml) 2ml vial ONE (14:41)
[2023-02-17] MEDS ORDERED: verapamil 2.5 mg/ml inj IV ONE (14:41)
[2023-02-17] MEDS ORDERED: iohexol 300mg/ml 100ml inj. ONE (14:42)
[2023-02-17] MEDS ORDERED: heparin 1,000unit/ml 10ml vial 0 ML ONE (14:42)
[2023-02-17] MEDS ORDERED: nitroGLYCERIN-Tridil 50MG/D5W 0 ML IV ONE (14:42)
[2023-02-17] MEDS ORDERED: fentaNYL/PF 50MCG/1 ML 2ML syringe ONE (14:42)
[2023-02-17 16:23] LABS: ISTAT HGB MIX 14.3 g/dl (14.0-17.9); ISTAT Hct MIX 42 %PCV (42-52); ISTAT O2 SATURATION MIX VENOUS 67 % (60-80); ISTAT SOURCE VEN
== END 2023-02-17 17:25 | disposition home or self-care (01) ==
LOC: SSTAY O 11:17
PROVIDERS: ATTEND Student in an Organized Health Care Education/Training Program
DX: I27.20 Pulmonary hypertension, unspecified (principal); I48.91 Unspecified atrial fibrillation; E78.5 Hyperlipidemia, unspecified; N18.4 Chronic kidney disease, stage 4 (severe); I48.0 Paroxysmal atrial fibrillation; M19.90 Unspecified osteoarthritis, unspecified site; E03.9 Hypothyroidism, unspecified; Z79.01 Long term (current) use of anticoagulants; Z79.899 Other long term (current) drug therapy; Z86.718 Personal history of other venous thrombosis and embolism; Z86.711 Personal history of pulmonary embolism
CPT/HCPCS: 36415; 80048; 80061; 82803; 85014; 85025; 85610; 85730; 93005; 93456; 99152; J1644; J2250; J3010; J3490; J7030; Q0163; 93451; 99153; A4615; A6258; C1751; Q9967

== ENCOUNTER 2024-05-02 13:41 | Outpatient (CLI) | payer MEDICARE, OTHER ==
[~2024-05-02 13:41] MED LIST changes: -ALBU8HFA PO; -AMLO10TA13 PO; -BUDE10.22 INH; +EMPA10TA PO; -ENOX100D5 SQ; +FLUT1BLS4 INH; +FURO40TA4 PO; +GABA-1405 PO; -GABA600T13 PO; +HYDR-3972 PO; -HYDR-4353 PO; +IPRA3AMP9 IH; -LOSA100T58 PO; +NIFE90TA70 PO; -PANT40TA54 PO; +SILD20TA14 PO
== END 2024-05-02 23:59 | disposition home or self-care (01) ==
LOC: CARD DIAG 13:41
PROVIDERS: ATTEND Internal Medicine
DX: I07.1 Rheumatic tricuspid insufficiency (principal); I13.0 Hypertensive heart and chronic kidney disease with heart failure and stage 1 through stage 4 chronic kidney disease, or unspecified chronic kidney disease; I50.42 Chronic combined systolic (congestive) and diastolic (congestive) heart failure; N18.2 Chronic kidney disease, stage 2 (mild); R06.02 Shortness of breath; I27.20 Pulmonary hypertension, unspecified; I48.19 Other persistent atrial fibrillation; J43.9 Emphysema, unspecified; J44.9 Chronic obstructive pulmonary disease, unspecified
CPT/HCPCS: 93306

== ENCOUNTER 2024-05-24 15:10 | Outpatient (CLI) | payer MEDICARE, OTHER | END 2024-05-24 23:59 | disposition home or self-care (01) | LOC: PUL REHAB 15:10 | PROVIDERS: ATTEND Internal Medicine | DX: I13.0 Hypertensive heart and chronic kidney disease with heart failure and stage 1 through stage 4 chronic kidney disease, or unspecified chronic kidney disease (principal); N18.2 Chronic kidney disease, stage 2 (mild); I50.42 Chronic combined systolic (congestive) and diastolic (congestive) heart failure; R06.02 Shortness of breath; I27.20 Pulmonary hypertension, unspecified; I48.19 Other persistent atrial fibrillation; J43.9 Emphysema, unspecified | CPT/HCPCS: 94618 ==